=== PATIENT | female | born 1975 | race Caucasian/White ===

== ENCOUNTER 2020-05-25 15:38 | Inpatient (IN) | payer BC ==
[~2020-05-25] VITALS: Ht 172.7 cm; Wt 86.2 kg
[2020-05-25] MEDS ORDERED: SODIUM CHLORIDE 0.9% 250ML 250 ML IV ONE (16:00)
--- NOTE | 2020-05-25 16:00 | Emergency Department Note ---
History of Present Illnes History of Present Illness Chief Complaint: Genitourinary History of Present Illness This is a 45 year old female Chief Complaint Comment Patient in from home with complaints of heavy vaginal bleeding outside of her menstrual cycle for the past few months. Patient has a history of uterine fibroids that she was supposed to have a biopsy for but due to bleeding she was unable to have the procedure. Routine lab work was done today and she was called and notified that her hemoglobin was 6 and was told to come to the ER. Historian: Patient Arrival Mode: Car Furniture Polisher Required: No Onset (how long ago): week(s) Location: vaginal Quality: bleeding Radiation: Reports non-radiation Severity: moderate Onset quality: gradual Duration (how long): week(s) Timing of current episode: constant Progression: worsening Chronicity: chronic Context: Denies recent illness, Denies recent surgery Relieving factors: none Exacerbating factors: none Associated symptoms: Reports denies other symptoms Treatments prior to arrival: none Past Medical/Family History Physician Review I have reviewed the patient's past medical and family history. Any updates have been documented here. Past Medical History Recent Fever: No Clinical Suspicion of Infectio: No New/Unexplained Change in Ment: No Past Medical History: Cancer Other Medical History: uterine fibriods Other Surgery: Breast Augmentation Social History Physically hurt or threatened: No Review of Systems Review of Systems Constitutional: Reports no symptoms EENTM: Reports no symptoms Cardiovascular: Reports no symptoms Respiratory: Reports no symptoms Gastrointestinal: Reports no symptoms Genitourinary: Reports as per HPI, Reports other (Vaginal bleeding) Musculoskeletal: Reports no symptoms Integumentary: Reports no symptoms Neurological: Reports no symptoms Psychological: Reports no symptoms Endocrine: Reports no symptoms Hematological/Lymphatic: Reports no symptoms Physical Exam Related Data Allergies: Coded Allergies: No Known Allergies (Unverified , 05/25/20) Triage Vital Signs Vital Signs Date Time Temp Pulse Resp B/P (MAP) Pulse Ox O2 Delivery O2 Flow Rate FiO2 05/25/20 15:42 99.1 95 18 163/86 100 Room Air Vital signs reviewed: Yes Physical Exam CONSTITUTIONAL Constitutional: Present well-developed, Present well-nourished HENT HENT: Present normocephalic, Present atraumatic, Present oropharynx clear/moist, Present nose normal HENT L/R: Present left ext ear normal, Present right ext ear normal EYES Eyes: Reports PERRL, Reports conjunctivae normal NECK Neck: Present ROM normal PULMONARY Pulmonary: Present effort normal, Present breath sounds normal CARDIOVASCULAR Cardiovascular: Present regular rhythm, Present heart sounds normal, Present capillary refill normal, Present normal rate GASTROINTESTINAL Abdominal: Present soft, Present nontender, Present bowel sounds normal GENITOURINARY Genitourinary: Present exam deferred SKIN Skin: Present warm, Present dry, Present pale MUSCULOSKELETAL Musculoskeletal: Present ROM normal NEUROLOGICAL Neurological: Present alert, Present oriented x 3, Present no gross motor or s ensory deficits PSYCHOLOGICAL Psychological: Present mood/affect normal, Present judgement normal Assessment & Plan Medical Decision Making MDM 45-year-old female presents for vaginal bleeding sent from Dr. Last's office. Plan to admit and perform fibroidectomy. We'll give blood in the emergency depar tment. Patient was discussed Dr. Horne has agreed to admit. Patient's appropriate for transfer to floor. Assessment & Plan Final Impression: (1) Anemia Depart Disposition: ADMITTED Last Vital Signs Date Time Temp Pulse Resp B/P (MAP) Pulse Ox O2 Delivery O2 Flow Rate FiO2 05/25/20 15:42 99.1 95 18 163/86 100 Room Air Medications in the ED Sodium Chloride 250 ml @ 0 mls/hr ONCE ONCE IV ; Start 05/25/20 at 16:00; Stop 05/25/20 at 16:01 DAVID MEJIAS MD May 25, 2020 16:00
[2020-05-25 16:09] LABS: BASOPHILS # (AUTO) 0.1 (0.0-0.1); BASOPHILS % 0.8 % (0.0-1.0); EOSINOPHILS # (AUTO) 0.1 (0.0-0.4); EOSINOPHILS % 1.2 % (0.0-6.0); HEMATOCRIT 24.9 % (34.2-44.1); LYMPHOCYTES # (AUTO) 2.5 (1.0-3.2); LYMPHOCYTES % 31.7 % (18.0-39.1); MEAN CORPUSCULAR HEMOGLOBIN 20.6 pg (28-32); MEAN CORPUSCULAR HGB CONC 27.3 g/dL (31-35); MEAN CORPUSCULAR VOLUME 75.5 fL (81-99); MONOCYTES # (AUTO) 0.4 (0.2-0.8); MONOCYTES % 5.2 % (4.4-11.3); NEUTROPHILS # (AUTO) 4.8 (2.1-6.9); NEUTROPHILS % 60.8 % (38.7-80.0); PLATELET COUNT 213 x10e3/uL (140-360); RED CELL DISTRIBUTION WIDTH 19.3 % (11.7-14.4)
[2020-05-25 16:12] LABS: HEMOGLOBIN 6.8 g/dL (12.0-16.0)
[2020-05-25 16:22] LABS: ALANINE AMINOTRANSFERASE 14 IU/L (0-55); ALBUMIN 4.3 g/dL (3.5-5.0); ALBUMIN/GLOBULIN RATIO 1.3 (0.8-2.0); ALKALINE PHOSPHATASE 64 IU/L (40-150); ANION GAP 14.9 mmol/L (8-16); BLOOD UREA NITROGEN 9 mg/dL (7-26); BUN/CREATININE RATIO 11 (6-25); CALCIUM 9.1 mg/dL (8.4-10.2); CARBON DIOXIDE 21 mmol/L (22-29); CHLORIDE 107 mmol/L (98-107); CREATININE, SERUM 0.84 mg/dL (0.57-1.11); EST GLOMERULAR FILTRATION RATE > 60 ML/MIN (60-); GLUCOSE 127 mg/dL (74-118); POTASSIUM 3.9 mmol/L (3.5-5.1); SODIUM 139 mmol/L (136-145)
[2020-05-25 17:22] VITALS: BP 153/76
[2020-05-25 17:34] VITALS: BP 153/76
[2020-05-25] MEDS ORDERED: IBUPROFEN200 MG PO (17:50)
[2020-05-25 17:58] VITALS: BP 153/76
--- NOTE | 2020-05-25 19:17 | NUR ---
RECEIVED REPORT FROM ER VIA WHEELCHAIR. PATIENT ARRIVED TO THE UNIT @ 2493. PATIENT IN STABLE CONDITION, NO S/S OF DISTRESS NOTED. IV SITES ASYMPTOMATIC AND PATENT.
--- NOTE | 2020-05-25 19:35 | NUR ---
COMPLETED BEDSIDE SHIFT REPORT AND ROUNDING WITH ONCOMING NIGHT NURSE. PATIENT IN STABLE CONDITION, NO S/S OF DISTRESS NOTED. IV SITE ASYMPTOMATIC AND PATENT, TRANSPARENT DRESSING C/D/I. BLOOD TRANSFUSION IS INFUSING ( 1ST UNIT) AT THIS TIME VITALS STABLE NO ADVERSE REACTION NOTED. TELEMETRY APPLIED. BED IN LOWEST POSITION AND LOCKED. CALL LIGHT WITHIN REACH.
--- NOTE | 2020-05-25 19:40 | NUR ---
Patient visited in room during nursing rounds. Patient alert and oriented x3. Just finished 1st unit of PRBC transfusion per MD order. Patient to receive 2nd unit of PRBC tonight. Pt aware she is scheduled for surgery (Removal of cervical polyp, Hysteroscopy, and Dilation and Curettage) tomorrow at 1400. Pt condition stable. Ambulatory in room prn. Call rose within reach. Will monitor pt closely.
[2020-05-25 20:00] VITALS: BP 121/84
[2020-05-25 21:00] VITALS: BP 121/84
[2020-05-25] MEDS ORDERED: SODIUM CHLORIDE 0.9% 250ML 250 ML ONE (22:46)
[2020-05-26] VITALS (8 sets, daily range): BP systolic 127–138; BP diastolic 70–83
--- NOTE | 2020-05-26 04:00 | NUR ---
Pt prefer to take a bath sometime this morning. Pt aware procedure will be around 2 pm today.
[2020-05-26 05:06] LABS: BASOPHILS # (AUTO) 0.1 (0.0-0.1); BASOPHILS % 0.9 % (0.0-1.0); EOSINOPHILS # (AUTO) 0.1 (0.0-0.4); EOSINOPHILS % 2.1 % (0.0-6.0); HEMATOCRIT 27.3 % (34.2-44.1); HEMOGLOBIN 7.8 g/dL (12.0-16.0); LYMPHOCYTES # (AUTO) 2.8 (1.0-3.2); LYMPHOCYTES % 42.2 % (18.0-39.1); MEAN CORPUSCULAR HEMOGLOBIN 22.2 pg (28-32); MEAN CORPUSCULAR HGB CONC 28.6 g/dL (31-35); MEAN CORPUSCULAR VOLUME 77.8 fL (81-99); MONOCYTES # (AUTO) 0.5 (0.2-0.8); MONOCYTES % 6.7 % (4.4-11.3); NEUTROPHILS # (AUTO) 3.2 (2.1-6.9); PLATELET COUNT 175 x10e3/uL (140-360); RED BLOOD COUNT 3.51 x10e6/uL (3.6-5.1); RED CELL DISTRIBUTION WIDTH 19.9 % (11.7-14.4)
[2020-05-26 05:21] LABS: BLOOD UREA NITROGEN 9 mg/dL (7-26); BUN/CREATININE RATIO 11 (6-25); CARBON DIOXIDE 24 mmol/L (22-29); CHLORIDE 108 mmol/L (98-107); CREATININE, SERUM 0.82 mg/dL (0.57-1.11); EST GLOMERULAR FILTRATION RATE > 60 ML/MIN (60-); GLUCOSE 90 mg/dL (74-118); SODIUM 141 mmol/L (136-145)
--- NOTE | 2020-05-26 07:00 | NUR ---
RECEIVED BEDSIDE SHIFT REPORT WITH OFF GOING NIGHT NURSE. PATIENT IN STABLE CONDITION, NO S/S OF DISTRESS NOTED. PATIENT ABLE TO VOICE NEEDS. RESPIRATIONS EVEN AND NONLABORED. IV SITE ASYMPTOMATIC AND PATENT, TRANSPARENT DRESSING C/D/I. TELEMETRY APPLIED. BED IN LOWEST POSITION AND LOCKED, SIDE RAILS X 2, NONSKID SOCKS APPLIED. CALL LIGHT WITHIN REACH.
--- NOTE | 2020-05-26 09:15 | NUR ---
Pt. expressed no spiritual or emotional concerns at this time. Compressor House Operator provided hospitality, prayer and information on how to reach biotechnician, if needed. Pt expressed appreciation for visit. No need to follow. JENIFER GONZALEZ Compressor House Operator Spiritual Care Department O: [phone]
--- NOTE | 2020-05-26 10:41 | History and Physical ---
HISTORY OF PRESENT ILLNESS: Ms. Anderson is a 45-year-old female with history of tobacco use, and anemia, was sent to the emergency room by SE[facility] CL[facility]ER because of severe anemia, hemoglobin was very low. PAST MEDICAL HISTORY: She has anemia. History of vaginal bleeding. SOCIAL HISTORY: She smokes, but she does not drink. ALLERGIES: SHE IS ALLERGIC TO SULFA. PAST SURGICAL HISTORY: She had breast augmentation. PHYSICAL EXAMINATION: GENERAL: Today, she is awake and alert. VITAL SIGNS: Temperature is 97.4, blood pressure is 131/70. HEART: Regular rate. LUNGS: Clear to auscultation. ABDOMEN: Distended and soft. LABORATORY DATA: On the blood work; white count is 6.71, hemoglobin is 7.8, hematocrit 27.3. COVID test came back negative. Potassium is 4.0, creatinine 0.82. Glucose 90. The patient received 2 units of packed red blood cells and she is doing better. ASSESSMENT AND PLAN: 1. Heavy vaginal bleeding. 2. Severe iron deficiency anemia, secondary to bigeminal bleeding. 3. Tobacco use. The plan at present time is to monitor H and H. Transfuse as needed. SEAM CLOSER consult for removal of cervical polyp, hysteroscopy, and D and C, all this was discussed in detail with the patient. All questions were answered to satisfaction. MD ZULLY Armenta/GLENN /[id number]
[2020-05-26] MEDS ORDERED: MIDAZOLAM HCL 2 MG/2 ML VIAL ONE (12:26)
[2020-05-26] MEDS ORDERED: FENTANYL CITRATE/PF 100MCG/2 ML INJ ONE (12:26)
--- NOTE | 2020-05-26 14:35 | NUR ---
PATIENT OFF THE UNIT @ 1343 TO THE OR. PATIENT IN STABLE CONDITION,NO S/S OF DISTRESS NOTED.
[2020-05-26] MEDS ORDERED: METHYLERGONOVINE MALEATE 0.2 MG/ML AMP ONE (15:05)
[2020-05-26] MEDS ORDERED: MEPERIDINE HCL INJ 25 MG/ML VIAL ONE (15:45)
--- NOTE | 2020-05-26 16:22 | NUR ---
PATIENT ARRIVED TO THE UNIT @1622 VIA STRETCHER. PATIENT IN STABLE CONDITION, NO S/S OF DISTRESS NOTED. MODERATE VAGINAL BLEED NOTED AFTER SURGERY.
[2020-05-26] MEDS ORDERED: LIDOCAINE HCL 2% LOCAL INJ 5 ML SDV VIAL INJ ONE (17:32)
[2020-05-26] MEDS ORDERED: SEVOFLURANE INHAL SOLN 250 ML PEN BTL ONE (17:32)
[2020-05-26] MEDS ORDERED: PROPOFOL IV EMULSION 10 MG/ML 20 ML VIAL ONE (17:32)
[2020-05-26] MEDS ORDERED: KETOROLAC TROMETHAMINE 30 MG/ML VIAL ONE (17:32)
[2020-05-26] MEDS ORDERED: DEXAMETHASONE SOD PHOS INJ 4 MG/ML VIAL ONE (17:32)
[2020-05-26] MEDS ORDERED: ONDANSETRON HCL INJ 2MG/ML 2ML 2 MG/ML VIAL ONE (17:32)
--- NOTE | 2020-05-26 19:41 | NUR ---
returned call. states patient can eat meals now.
--- NOTE | 2020-05-26 19:52 | NUR ---
COMPLETED BEDSIDE SHIFT REPORT AND ROUNDING WITH ONCOMING NIGHT NURSE. PATIENT IN STABLE CONDITION, NO S/S OF DISTRESS NOTED. PATIENT ABLE TO VOICE NEEDS. RESPIRATIONS EVEN AND NONLABORED. IV SITE ASYMPTOMATIC AND PATENT, TRANSPARENT DRESSING C/D/I. TELEMETRY APPLIED. MODERATE VAGINAL BLEEDING NOTED. BED IN LOWEST POSITION AND LOCKED, SIDE RAILS X 2, NONSKID SOCKS APPLIED. CALL LIGHT WITHIN REACH.
--- NOTE | 2020-05-26 21:09 | Operative Report ---
DATE OF PROCEDURE: 05/26/2020 SURGEON: Johnny Last MD PREOPERATIVE DIAGNOSES: 1. A 45-year-old female, 4, para 4 with long heavy periods and abnormal uterine/vaginal bleeding leading to severe anemia, 6.4 g. 2. Has a large cervical polyp about 3-4 cm size. 3. Has small fibroids uterus. POSTOPERATIVE DIAGNOSES: 1. A 45-year-old female, 4, para 4 with long heavy periods and abnormal uterine/vaginal bleeding leading to severe anemia, 6.4 g. 2. Has a large cervical polyp about 3-4 cm size. 3. Has small fibroids uterus. PROCEDURES DONE: 1. Exam under anesthesia. 2. Removal of large cervical polyp, which was coming from the posterior cervical wall and filling the whole cervical canal. 3. Hysteroscopy and dilation and curettage. ANESTHESIA: General. FINDINGS: At the time of surgery on EUA, there was no active vaginal bleeding. She was bleeding more like a spotting. On vaginal exam, the cervical polyp was protruding through the dilated cervical os opening, when you feel, it feels like about 3-4 cm in the cervix and lower part of the uterus and uterus enlarged about 12- to 14-week size. The findings at the time of surgery, large cervical polyp protruding through the dilated cervical opening, we can see about 2-3 cm size. Cervical canal was enlarged like a bulb about 3-4 cm size and uterus was about 12-week size. No adnexal masses felt. While doing the procedure, the cervical polyp was filling the whole cervical canal, could not remove entirely, it was coming out piecemeal and very vascular arising from the posterior wall of the cervix and then did the hysteroscopy, the uterine cavity looks slightly enlarged, but normal size cavity, both the tubal openings looks normal. There were no ulcerations or growth inside the uterine cavity. Even at the end of the procedure, after removing the polyp, the uterine cavity looks normal. There is no bleeding from the uterine cavity, no growth, but the cervical growth was very vascular and came out in piecemeal, difficult to remove entirely, but finally came out and the base is not bleeding. Hemostasis satisfactory at the end of the procedure and the urine was clear. ESTIMATED BLOOD LOSS: About 100 mL. CONDITION: The patient was stable in the recovery room. PROCEDURE IN DETAIL: The patient was brought to the operating room, put in the supine position, and general anesthesia was given without any problems. After adequate anesthesia, the patient was put in the lithotomy position, examined under anesthesia, the findings are as dictated above, then she was prepped and draped in the routine fashion and emptied the bladder for clear urine. Then, heavy-weighted speculum put in the posterior fornix of vagina, identified the cervix. The opening was dilated and you can see the polypoidal growth protruding out of the opening, but it was not coming out of the cervix. Then, held the anterior lip of the cervix with single-tooth tenaculum and tried to catch the polypoidal growth with sponge holding forceps, but could not get the whole growth in the sponge holding forceps because it was about 3-4 cm size, it was big, and the tissue was coming out in the piecemeal. When felt with the finger, it was coming from the posterior wall of the cervix and filling the whole the cervical canal and most of the polyp removed and then did the hysteroscopy. Saline was used as the media. The cavity looks slightly enlarged, but otherwise it was normal. No polyps, no growth and both tubal openings looked normal and there was no bleeding inside the uterus. Then did the curettage, came back to the polyp, I can feel the posterior wall and the little growth, that was held with the sponge holding forceps, twisted and removed it and gave 0.2 mg of Methergine intramuscular to make the uterus and the cervix contract. When I felt with inside the cervix, the whole polypoidal growth came out, there was no active vaginal bleeding, looked again with the hysteroscope, the uterine cavity looks normal, no active bleeding in the cervix, there was no active bleeding in the vagina. Hemostasis was good and after making sure of the hemostasis, all the instruments removed and the patient moved to recovery room in a stable condition. Estimated blood loss around 100 mL and urine clear. The instrument and swab counts were correct. Johnny Last MD NR/MODL /[id number]
[2020-05-27] VITALS: BP 122/63
[2020-05-27 04:00] VITALS: BP 126/63
[2020-05-27 06:37] LABS: HEMATOCRIT 26.7 % (34.2-44.1); HEMOGLOBIN 7.6 g/dL (12.0-16.0); MEAN CORPUSCULAR HEMOGLOBIN 22.5 pg (28-32); MEAN CORPUSCULAR HGB CONC 28.5 g/dL (31-35); PLATELET COUNT 175 x10e3/uL (140-360); RED BLOOD COUNT 3.38 x10e6/uL (3.6-5.1); RED CELL DISTRIBUTION WIDTH 20.1 % (11.7-14.4)
[2020-05-27 08:09] VITALS: BP_SYST 111; BP_SYST 114; BP_DIAS 69; BP_DIAS 85
[2020-05-27 09:47] VITALS: BP 114/69
[2020-05-27 12:03] VITALS: BP 107/57
[2020-05-27] MEDS ORDERED: TYLENOL # 31 EA PO (13:15)
[2020-05-27] MEDS ORDERED: HEMOCYTE-F TAB1 EACH PO (13:18)
[2020-05-27] MEDS ORDERED: DOXYCYCLINE HY100 MG PO (13:18)
--- NOTE | 2020-05-27 13:54 | NUR ---
Pt discharged home at this time. Pt verbalized understanding of all discharge instructions and follow up appointments. Pt was discharged with three prescriptions and verbalized understanding of new medication administration. 0 s/s of acute distress noted at time of discharge.
--- NOTE | 2020-05-27 21:18 | Discharge Summary ---
BRIEF HISTORY: The patient is a 45-year-old female 4, para 4 with a long heavy periods and abnormal uterine bleeding leading to the severe anemia. The hemoglobin was 6.4 g and for that reason came into the emergency room and evaluated in the emergency room and admitted and received 2 units of the blood transfusion. Her previous history, she was seen in my office. Because of the COVID, she did not come for the followup for long time and when initial evaluation, she was having the heavy long periods. For that she tried the minipill that helped initially but stopped working and started abnormal uterine bleeding. Ultrasound examination noticed small fibrous of the uterus, measured 2 of them, each measuring about 3 cm size and the patient wanted to have the endometrial ablation. I advised her to come into the office for the individual biopsy, but because of the COVID and other personal reasons, she did not come back for a long time and when she came this week she was complaining of the low back ache and was bleeding heavy but now slowed down for the last 2 to 3 days and looks pale on examination. On examination found the abdomen was soft, not tender, good bowel sounds and pelvic examination, the cervix was os was dilated and through that growth necrotizing brown colored growth was seen, coming out of the cervix, but still it was inside the cervix and when felt on the bimanual examination, it was in the cervix about 4 to 5 cm size like a [place] size. The uterus was enlarged about 12 to 14 weeks size. The growth was in the cervix, not coming out like a polypoidal growth or not hanging in the vagina. Therefore, could not remove and also it was a significant size. Therefore, recommended to be removed under the general anesthesia, but because of her low hemoglobin came into the emergency room. She was admitted and after the blood transfusion initial hemoglobin was 6.4 in the office and 6.8 in the emergency room. It went up to 7.8 and the patient was feeling much better and scheduled for the removal of the growth and hysteroscopy and D and C. At this time, not a good candidate for the hysterectomy because her blood counts are very, very low and the growth was in the cervix. That is why we thought could be removed from the vaginal approach. Therefore, scheduled for the removal of the growth, hysteroscopy, and D and C under the general anesthesia and performed on May 26, 2020. The findings, the growth was in the cervical canal. The sessile growth, arising from the posterior valve of the cervix and filling the whole cervical canal. When I tried to remove, it came piecemeal and at the end the growth was caught with sponge holding forceps and tested and removed like a myoma and then the whole growth came out and did the hysteroscopy, the uterine cavity looks normal size and shape and there was no polyps and no bleeding, no ulcerations in the uterine cavity. The whole growth and the bleeding were from the cervix and the polypoidal growth, which was filling the whole cervical area and initially, it looked like about 4 to 5 cm on examination preoperatively, but when we started removing the tissue it came out piecemeal and very vascular and all the tissue put together appeared like 8 to 9 cm size. It was significant size. All the tissues sent for pathology. At the end of the procedure, the hemostasis was satisfactory. There was no active bleeding and the cervix appears normal. The patient was moved to the recovery room in a stable condition. The postoperative recovery was uneventful. The patient came to the room because of the significant size of the growth and also it is coming from the cervix, which was very vascular and also she was anemic to start, kept the patient for observation over night and this morning, she feels very good, ambulating very well, took shower. There is no active bleeding more like a last day of the period or spotting. Did not need any pain medication over night. PHYSICAL EXAMINATION: GENERAL: She is comfortable at rest. VITAL SIGNS: Afebrile, vital signs stable. HEART: Regular rate and rhythm. LUNGS: Clear. ABDOMEN: Soft, no distention. Good bowel sounds and linear more like a spotting. No active bleeding. No clots. EXTREMITIES: Not tender and she is ready to go home. Discharged home on 05/27/2020. DISCHARGE CONDITION: Stable. DISPOSITION: Home. Going to go home with her mother and regular diet. No strenuous work. Complete pelvic rest. MEDICATIONS: Doxycycline 10 mg capsule p.o. q.12 hours for 1 week because the growth was in the cervix and it was open to prevent the infection and iron tablets 1 tablet p.o. q.8 hours. Gave prescription for night tablet and pain medication Tylenol No.3 one tablet q.4 to 6 hours p.r.n. pain if needs, total of 20, no refills. FOLLOWUP: Follow up in my office in 1 week to discuss the pathology and further evaluation. DISCHARGE INSTRUCTIONS: An increased pain, nausea, vomiting, fever, any more vaginal bleeding, advised the patient to call or come into the emergency room or into my office. MD CATHY Ly/GLENN /[id number]
== END 2020-05-27 13:54 | disposition home or self-care (01) | DRG 744 ==
LOC: ER 15:55 → ERHOLD 16:50 → MED/SURG3 17:00
PROVIDERS: ADMIT Internal Medicine; ATTEND Internal Medicine
PROC: 30233N1 Transfusion of Nonautologous Red Blood Cells into Peripheral Vein, Percutaneous Approach (ICD-10-PCS; 2020-05-25)
PROC: 0UBC8ZZ Excision of Cervix, Via Natural or Artificial Opening Endoscopic (ICD-10-PCS; 2020-05-26)
PROC: 0UDB8ZZ Extraction of Endometrium, Via Natural or Artificial Opening Endoscopic (ICD-10-PCS; principal; 2020-05-26 13:30)
DX: N84.1 Polyp of cervix uteri (principal); D62 Acute posthemorrhagic anemia; D25.9 Leiomyoma of uterus, unspecified; N93.8 Other specified abnormal uterine and vaginal bleeding; F17.200 Nicotine dependence, unspecified, uncomplicated; Z11.59 Encounter for screening for other viral diseases
CPT/HCPCS: 36415; 80048; 80053; 84702; 85007; 85025; 85027; 86850; 86900; 86920; 88305; 88342; 99284; J1100; J1885; J2001; J2175; J2210; J2250; J2405; J3010; J7050; P9016